=== PATIENT | female | born 1955 | race American Indian/Alaskan Native ===

== ENCOUNTER 2019-11-25 10:33 | Outpatient (CLI) | payer MEDICARE | END 2019-11-25 10:34 | disposition home or self-care (01) | LOC: CARD 10:33 | PROVIDERS: ATTEND Internal Medicine | DX: R55 Syncope and collapse (principal) | CPT/HCPCS: 93005; 93010 ==

== ENCOUNTER 2020-03-12 10:50 | Emergency (ER) | payer MEDICARE ==
[2020-03-12 10:56] VITALS: BP 163/59
--- NOTE | 2020-03-12 11:46 | Emergency Department Report ---
ED Rash HPI - HPI Chief Complaint: Skin Rash Stated Complaint: RASH ALL OVER Time Seen by Provider: 03/12/20 11:40 Other History: pt is a 64 yo female who presents to the ED with c/o a diffuse itchy rash that began two days ago. she states she was out cutting grass and was not covered up and states she began to have the rash and itching once she went inside. she states now her eyes also feel itchy. she denies any vision changes. she states she feels a small amount of swelling around the eyes. she denies any difficulty breathing, difficulty swallowing, throat closing sensation, or any other symptoms. PMHx eczema, GERD, HTN, anxiety, asthma. allergy to tylenol 3. ED Review of Systems ROS: Stated complaint: RASH ALL OVER Other details as noted in HPI Comment: All other systems reviewed and negative ED Past Medical Hx - Past Medical History Previous Medical History?: Yes Hx Heart Attack/AMI: No Hx GERD: Yes Hx Liver Disease: No Hx Renal Disease: No Hx Seizures: No Hx Asthma: Yes Hx COPD: Yes (moderate, no intubations in the past.) Additional medical history: Dilated common bile duct. CHRONIC PAIN - Surgical History Past Surgical History?: Yes Additional Surgical History: foot surgery. left leg vein surgery summer 2017 - Social History Smoking Status: Current Every Day Smoker Substance Use Type: None - Medications Home Medications: Home Medications Medication Instructions Recorded Confirmed Last Taken Type Omeprazole [PriLOSEC] 40 mg PO DAILY #30 capsule. 10/16/14 Unknown Rx Acetaminophen/Codeine [Tylenol #3] 1 tab PO Q4-6H PRN #20 tablet 07/25/16 Unknown Rx Sulfamethoxazole/Trimethoprim 1 each PO BID #10 tablet 07/25/16 Unknown Rx [Bactrim DS TAB] Triamcinolone 0.5% [Kenalog 0.5% 1 applic TP BID #1 tube 03/12/20 Unknown Rx CREAM] diphenhydrAMINE [Benadryl CAP] 50 mg PO Q8HR PRN #20 capsule 03/12/20 Unknown Rx predniSONE [Deltasone] 40 mg PO QDAY 7 Days #14 tab 03/12/20 Unknown Rx Rash Exam - Exam General: Vital signs noted. No distress. Alert and acting appropriately. HEENT: Yes Periorbital Edema (small amount to the eyelids, no erythema, no fluctuance), No Conjuctival Injection, No Chemosis, No Perioral Edema, No Tongue Edema, No Uvular Edema, No Compromised Airway, No Drooling Lungs: Yes Good Air Exchange, No Wheezes, No Ronchi, No Stridor, No Cough, No Labored Respirations, No Retractions, No Use of Accessory Muscles, No Other Abnormal Lung Sounds Heart: Yes Regular, No Murmur Skin: Yes Other (small erythematous papules/vesicles present to the BUE, chest, face, and behind the neck) ED Course Vital Signs 03/12/20 10:51 Temperature 98.5 F Pulse Rate 88 Respiratory 18 Rate Blood Pressure 163/59 O2 Sat by Pulse 98 Oximetry ED Medical Decision Making - Medical Decision Making pt is a 64 yo female who presents to the ED with c/o a diffuse itchy rash that began two days ago. she states she was out cutting grass and was not covered up and states she began to have the rash and itching once she went inside. she states now her eyes also feel itchy. she denies any vision changes. she states she feels a small amount of swelling around the eyes. she denies any difficulty breathing, difficulty swallowing, throat closing sensation, or any other symptoms. PMHx eczema, GERD, HTN, anxiety, asthma. allergy to tylenol 3. Vitals are stable. On exam small amount of edema to the eyelids, extraocular movements intact, no pain with extraocular movements, no erythema, no fluc tuance, no angioedema, uvula is midline, no uvular edema, no edema of the tongue, small erythematous papules/vesicles present to the BUE, chest, face, and behind the neck. Examination appears consistent with contact versus irritant dermatitis, appears most likely to be a poison karie associated rash. Patient given IM dexamethasone, Benadryl, Pepcid and her symptoms improved and she was feeling better and ready to go home. Patient given prescription for triamcinolone, prednisone, Benadryl. advised pt Please take medication as prescribed. Please avoid scratching so you do not spread it even more. Follow- up with your primary care doctor in the next 3 days for reexamination. Return to the emergency room for any new or worsening symptoms. Please use calamine lotion, cool compresses, oatmeal bath - Differential Diagnosis Contact Derm, irritant Derm, allergic reaction, poison karie dermatitis, rash Critical care attestation.: If time is entered above; I have spent that time in minutes in the direct care of this critically ill patient, excluding procedure time. ED Disposition Clinical Impression: Rash, Poison karie dermatitis Disposition: DC-01 TO HOME OR SELFCARE Is pt being admited?: No Does the pt Need Aspirin: No Condition: Stable Instructions: Poison Karie (ED) Additional Instructions: Please take medication as prescribed. Please avoid scratching so you do not spread it even more. Follow-up with your primary care doctor in the next 3 days for reexamination. Return to the emergency room for any new or worsening symptoms. Please use calamine lotion, cool compresses, oatmeal bath Prescriptions: diphenhydrAMINE [Benadryl CAP] 50 mg PO Q8HR PRN #20 capsule PRN Reason: itching predniSONE [Deltasone] 40 mg PO QDAY 7 Days #14 tab Triamcinolone 0.5% [Kenalog 0.5% CREAM] 1 applic TP BID #1 tube Referrals: JEAN GOODMAN MD [Primary Care Provider] - 2-3 Days Time of Disposition: 12:25 Print Language: POLISH
[2020-03-12] MEDS ORDERED: FAMOTIDINE 20 MG TAB PO ONE (11:47)
[2020-03-12] MEDS ORDERED: dexAMETHasone 20 MG/5 ML VIAL IM ONE (11:47)
[2020-03-12] MEDS ORDERED: diphenhydrAMINE 25 MG CAP PO ONE (11:47)
== END 2020-03-12 12:37 | disposition home or self-care (01) ==
LOC: ED 10:50
DX: L23.7 Allergic contact dermatitis due to plants, except food (principal); R21 Rash and other nonspecific skin eruption; J44.9 Chronic obstructive pulmonary disease, unspecified; K21.9 Gastro-esophageal reflux disease without esophagitis; F17.200 Nicotine dependence, unspecified, uncomplicated; Z98.890 Other specified postprocedural states; Z79.899 Other long term (current) drug therapy; Z88.6 Allergy status to analgesic agent; Z88.8 Allergy status to other drugs, medicaments and biological substances
CPT/HCPCS: 96372; 99282; J1100

== ENCOUNTER 2020-07-05 11:49 | Emergency (ER) | payer MEDICARE ==
--- NOTE | 2020-07-05 13:41 | Emergency Department Report ---
ED General Adult HPI - General Chief complaint: Pain General Stated complaint: RT SIDED PAIN/PAIN IN BUTT Time Seen by Provider: 07/05/20 13:31 Source: patient Mode of arrival: Ambulatory Limitations: No Limitations - History of Present Illness Initial comments: This is a 64-year-old female nontoxic well in appearance with no acute signs of distress noted acute on chronic intermittent bilateral hand, bilateral feet, and lower back pains x 3 months. Patient sees her PCP and was prescribed Norcos for pains. Stated symptoms do resolve but intermittently comes back. Denies any radiation of pain. Patient denies any trauma. Denies any bladder or bowel instability. Patient denies any urinary symptoms. Denies any fever, chills, nausea, vomiting, headache, stiff neck, chest pain or shortness of breath. Patient denies any numbness or tingling. Allergies to acteminopehn and codeine. -: month(s) Severity scale (0 -10): 3 Quality: aching Consistency: intermittent Improves with: immobilization Worsens with: movement Associated Symptoms: denies other symptoms. denies: confusion, chest pain, cough, diaphoresis, fever/chills, headaches, loss of appetite, malaise, nausea /vomiting, rash, seizure, shortness of breath, syncope, weakness Treatments Prior to Arrival: none - Related Data Previous Rx's Medication Instructions Recorded Last Taken Type Omeprazole [PriLOSEC] 40 mg PO DAILY #30 capsule. 10/16/14 Unknown Rx Acetaminophen/Codeine [Tylenol #3] 1 tab PO Q4-6H PRN #20 tablet 07/25/16 Unknown Rx Sulfamethoxazole/Trimethoprim 1 each PO BID #10 tablet 07/25/16 Unknown Rx [Bactrim DS TAB] Triamcinolone 0.5% [Kenalog 0.5% 1 applic TP BID #1 tube 03/12/20 Unknown Rx CREAM] diphenhydrAMINE [Benadryl CAP] 50 mg PO Q8HR PRN #20 capsule 03/12/20 Unknown Rx predniSONE [Deltasone] 40 mg PO QDAY 7 Days #14 tab 03/12/20 Unknown Rx Allergies Allergy/AdvReac Type Severity Reaction Status Date / Time acetaminophen Allergy Nausea Verified 09/10/18 10:11 [From Tylenol-Codeine] codeine Allergy Nausea Verified 09/10/18 10:11 [From Tylenol-Codeine] ED Review of Systems ROS: Stated complaint: RT SIDED PAIN/PAIN IN BUTT Other details as noted in HPI Constitutional: denies: chills, fever Eyes: denies: eye pain, eye discharge, vision change ENT: denies: ear pain, throat pain Respiratory: denies: cough, shortness of breath, wheezing Cardiovascular: denies: chest pain, palpitations Endocrine: no symptoms reported Gastrointestinal: denies: abdominal pain, nausea, diarrhea Genitourinary: denies: urgency, dysuria, discharge Musculoskeletal: arthralgia. denies: back pain, joint swelling Skin: denies: rash, lesions Neurological: denies: headache, weakness, paresthesias Psychiatric: denies: anxiety, depression Hematological/Lymphatic: denies: easy bleeding, easy bruising ED Past Medical Hx - Past Medical History Previous Medical History?: Yes Hx Heart Attack/AMI: No Hx GERD: Yes Hx Liver Disease: No Hx Renal Disease: No Hx Seizures: No Hx Asthma: Yes Hx COPD: Yes (moderate, no intubations in the past.) Additional medical history: Dilated common bile duct. CHRONIC PAIN - Surgical History Past Surgical History?: Yes Additional Surgical History: foot surgery. left leg vein surgery summer 2017 - Social History Smoking Status: Never Smoker Substance Use Type: None - Medications Home Medications: Home Medications Medication Instructions Recorded Confirmed Last Taken Type Omeprazole [PriLOSEC] 40 mg PO DAILY #30 capsule. 10/16/14 Unknown Rx Acetaminophen/Codeine [Tylenol #3] 1 tab PO Q4-6H PRN #20 tablet 07/25/16 Unknown Rx Sulfamethoxazole/Trimethoprim 1 each PO BID #10 tablet 07/25/16 Unknown Rx [Bactrim DS TAB] Triamcinolone 0.5% [Kenalog 0.5% 1 applic TP BID #1 tube 03/12/20 Unknown Rx CREAM] diphenhydrAMINE [Benadryl CAP] 50 mg PO Q8HR PRN #20 capsule 03/12/20 Unknown Rx predniSONE [Deltasone] 40 mg PO QDAY 7 Days #14 tab 03/12/20 Unknown Rx ED Physical Exam - General Limitations: No Limitations General appearance: alert, in no apparent distress - Head Head exam: Present: atraumatic, normocephalic - Eye Eye exam: Present: normal appearance - Neck Neck exam: Present: normal inspection, full ROM. Absent: tenderness, meningismus, lymphadenopathy - Respiratory Respiratory exam: Present: normal lung sounds bilaterally. Absent: respiratory distress, wheezes, rales, rhonchi, stridor, chest wall tenderness, accessory muscle use, decreased breath sounds, prolonged expiratory - Cardiovascular Cardiovascular Exam: Present: regular rate, normal rhythm, normal heart sounds. Absent: bradycardia, tachycardia, irregular rhythm, systolic murmur, diastolic murmur, rubs, gallop - GI/Abdominal GI/Abdominal exam: Present: soft, normal bowel sounds. Absent: distended, tenderness, guarding, rebound, rigid, diminished bowel sounds - Extremities Exam Extremities exam: Present: normal inspection, full ROM, normal capillary refill. Absent: tenderness - Back Exam Back exam: Present: normal inspection, full ROM. Absent: tenderness, CVA tenderness (R), CVA tenderness (L), muscle spasm, paraspinal tenderness, vertebral tenderness, rash noted - Neurological Exam Neurological exam: Present: alert, oriented X3, normal gait - Psychiatric Psychiatric exam: Present: normal affect, normal mood - Skin Skin exam: Present: warm, dry, intact, normal color. Absent: rash ED Course Vital Signs 07/05/20 13:41 Temperature 98.7 F Pulse Rate 85 Respiratory 16 Rate Blood Pressure 115/62 [Left] O2 Sat by Pulse 98 Oximetry - Reevaluation(s) Reevaluation #1: 07/05/20 13:40 Patient is speaking in full sentences with no signs of distress noted. ED Medical Decision Making - Medical Decision Making 64-year-old female that presents with arthilga. Patient is stable and was examined by me. Exam is unremarkable. Patient presents with chronic condition and has PCP that she follows for this condition. Patient was instructed to Follow-up with a primary care doctor in 3-5 days or if symptoms worsen and continue return to emergency room as soon as possible. At time of discharge, the patient does not seem toxic or ill in appearance. No acute signs of distress noted. Patient agrees to discharge treatment plan of care. No further questions noted by the patient. Critical care attestation.: If time is entered above; I have spent that time in minutes in the direct care of this critically ill patient, excluding procedure time. ED Disposition Clinical Impression: Arthralgia Qualifiers: Joint pain location: unspecified Qualified Code(s): M25.50 - Pain in unspecified joint Disposition: Z- MED SCREENING EXAM-LEFT Is pt being admited?: No Does the pt Need Aspirin: No Condition: Stable Instructions: Arthralgia (ED) Additional Instructions: Follow-up with a primary care doctor in 3-5 days or if symptoms worsen and continue return to emergency room as soon as possible. Referrals: PRIMARY CAREMD [Referring] - 3-5 Days GENNARO MUNSON MD [Staff Physician] - 3-5 Days
[2020-07-05 13:46] VITALS: BP 115/62
== END 2020-07-05 13:48 | disposition left against medical advice (07) ==
LOC: ED 11:49
DX: M19.91 Primary osteoarthritis, unspecified site (principal); Z53.21 Procedure and treatment not carried out due to patient leaving prior to being seen by health care provider

== ENCOUNTER 2021-08-07 10:32 | Outpatient (CLI) | payer MEDICARE ==
--- NOTE | 2021-08-07 11:27 | XRay Report ---
Right shoulder 3 views INDICATION: Pain FINDINGS: There is mild glenohumeral and AC degenerative change. No acute fracture dislocation. No fo nikki soft tissue abnormality. Enthesophyte extends inferiorly from the acromion. Signer Name: Ventura Main MD Signed: 08/07/2021 11:22 AM Workstation Name: [id number]
--- NOTE | 2021-08-07 11:28 | XRay Report ---
XR knee BILAT 1-2V INDICATION: BILATERAL KNEE PAIN. COMPARISON: No relevant prior imaging study available. FINDINGS: No acute skeletal abnormality. No significant soft tissue abnormality. There is tricompartmental joint space narrowing greatest at the medial compartments bilaterally. No significant effusion. IMPRESSION: 1. No acute findings. Signer Name: Artur Biggs MD Signed: 08/07/2021 11:24 AM Workstation Name: General [id number]
== END 2021-08-07 10:33 | disposition home or self-care (01) ==
LOC: XRAY 10:32
PROVIDERS: ATTEND Orthopaedic Surgery
DX: M17.0 Bilateral primary osteoarthritis of knee (principal); M19.011 Primary osteoarthritis, right shoulder

== ENCOUNTER 2021-08-26 11:00 | Outpatient (CLI) | payer MEDICARE | END 2021-08-26 11:01 | disposition home or self-care (01) | LOC: SLR 11:00 | PROVIDERS: ATTEND Internal Medicine | DX: G47.30 Sleep apnea, unspecified (principal); G47.33 Obstructive sleep apnea (adult) (pediatric) | CPT/HCPCS: 95810 ==

== ENCOUNTER 2021-09-10 11:00 | Outpatient (CLI) | payer MEDICARE | END 2021-09-10 11:01 | disposition home or self-care (01) | LOC: SLR 11:00 | PROVIDERS: ATTEND Internal Medicine | DX: G47.33 Obstructive sleep apnea (adult) (pediatric) (principal) | CPT/HCPCS: 95811 ==

== ENCOUNTER 2021-11-16 18:16 | Emergency (ER) | payer MEDICARE | END 2021-11-17 04:00 | disposition left against medical advice (07) | LOC: ED 18:16 | DX: Z53.21 Procedure and treatment not carried out due to patient leaving prior to being seen by health care provider (principal) ==